=== PATIENT | male | born 1980 | race Caucasian/White ===

== ENCOUNTER → 2016-12-31 09:44 | Outpatient (CLI) | payer MEDICAID ==
--- NOTE | ~2016-12-31 | EEG ---
PATIENT:SILAS VAN DATE OF SERVICE: 12/31/16 MEDICAL RECORD: [id number] DATE OF : 78 LOCATION: [facility] ADMISSION DATE: 12/31/16 REFERRING PHYSICIAN: INTERPRETING PHYSICIAN: DEON CARR MD DATE OF SERVICE: 01/01/2017 Referred by myself as an outpatient. ELECTROENCEPHALOGRAM NUMBER: [id number]. DATE OF EXAMINATION: 12/31/2016 at 11:00 a.m. TECHNICAL DATA: This electroencephalographic recording consists of approximately 20 minutes of data collection utilizing the international 10/20 system of electrode placement and both referential and non-referential montages. Sixteen channels of electrocerebral recording are accompanied by a 17th channel dedicated to the electrocardiographic rhythm and 2 channels of electromyographic recording. Recording is performed in the awake and drowsy states utilizing activation by hyperventilation and photic stimulation. ELECTROENCEPHALOGRAPHIC DATA: The awake state comprises approximately 40% of the recorded electrocerebral activity. Electromyographic artifact is prominent and rapid eye movements are seen. The posterior dominant background consists of a symmetric, rhythmic, waxing and waning alpha activity of 9-10 Hz, which is suppressed by eye opening. There is also excessive fast activity related to medication effect in the range of 20 to 25 Hz. The drowsy state comprises the remaining portion of the recorded electrocerebral activity. Electromyographic artifact is diminished and rapid eye movements are not seen. The posterior dominant background is relatively suppressed. No abnormal or focal slowing is identified. No epileptiform discharges are seen. Hyperventilation and photic stimulation induced no abnormal change in the recorded electrocerebral activity. INTERPRETATION: Normal (awake and drowsy). This is a normal electroencephalographic recording. There is excessive beta activity in the range of 20 to 25 Hz alpha felt to be related to medication. TRANSINT:[id number] Voice Confirmation ID: [id number] DOCUMENT ID: [id number] DEON CARR MD CC: [id number] DICTATION DATE: 01/01/1755 [employer] RE[employer]ER: 01/02/17 [id number] DEP CLI 12/31/16 [place] [id number] [place] [id number]
== END | disposition home or self-care (01) ==
LOC: D.CN 09:44
DX: G40.309 Generalized idiopathic epilepsy and epileptic syndromes, not intractable, without status epilepticus (principal); F25.9 Schizoaffective disorder, unspecified; F41.1 Generalized anxiety disorder